=== PATIENT | female | born 1960 | race Caucasian/White ===

== ENCOUNTER → 2019-06-08 15:41 | Outpatient (CLI) | payer SELFPAY ==
--- NOTE | ~2019-06-08 | CT_ITS ---
EXAMINATION: CT abdomen pelvis wo con DATE: 06/08/2019 16:07 INDICATION: Low back pain, hematuria TECHNIQUE: Computed tomography (CT) of the abdomen and pelvis was performed without intravenous contr ast. The dose-length product (DLP) was 492.79 mGy-cm. Automated exposure control and iterative recons truction technique were employed. COMPARISON: CT, 06/10/2008 FINDINGS: Minimal dependent atelectasis is present in the lung bases. The heart size is normal. There is a stable 4 mm cyst of the right hepatic lobe. The spleen, pancreas, gallbladder, and adrenal glan ds are normal. The kidneys are unremarkable. No stones are identified in the kidneys, ureters, or patti dder. There is no hydronephrosis or hydroureter. No pathologically enlarged abdominal or pelvic lymph nodes are identified. There is no free intraperitoneal gas or evidence of bowel obstruction. There i s calcified fibroid of the uterine fundus. IMPRESSION: 1. No CT correlate for the patient's symptoms. Reviewed, dictated and finalized at location A. 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
== END ==
PROVIDERS: PCP Family Medicine; Visit Provider Family Medicine
DX: R82.90 Unspecified abnormal findings in urine (principal)
CPT/HCPCS: 74176

== ENCOUNTER 2019-08-31 08:22 | Outpatient (CLI) | payer OTHER, SELFPAY ==
--- NOTE | ~2019-08-31 | US_ITS ---
EXAMINATION: US right upper quadrant DATE: 08/31/2019 09:12 INDICATION: Other cholelithiasis without obstruction. TECHNIQUE: Multiple grayscale and Doppler ultrasound images of the abdomen were obtained. COMPARISON: CT abdomen and pelvis 06/08/2019 FINDINGS: The visualized portions of the head, body, and tail of the pancreas are normal. The liver i s normal. There is normal flow in main portal vein. The gallbladder is normal in size. No gallstones or gallbladder wall thickening. There was no sonographic Otto sign. The common duct is normal and m easures 3 mm. IMPRESSION: 1. Normal right upper quadrant ultrasound. Reviewed, dictated and finalized at location A.
== END 2019-08-31 08:23 | disposition home or self-care (01) ==
PROVIDERS: PCP Family Medicine; Visit Provider Family Medicine
DX: K80.80 Other cholelithiasis without obstruction (principal)
CPT/HCPCS: 76705

== ENCOUNTER 2019-12-22 12:00 | Outpatient (CLI) | payer OTHER, SELFPAY ==
--- NOTE | ~2019-12-22 | MM_ITS ---
EXAMINATION: MM screening [facility] BI w huber HISTORY: Screening TECHNIQUE: Craniocaudal and mediolateral oblique 3-D tomosynthesis images were obtained and synthetic 2-D images were generated. CAD analysis was submitted and interpreted. COMPARISON: Comparison to multiple prior studies sequentially, with oldest reviewed study dated 01/19. BREAST PARENCHYMAL COMPOSITION: There are scattered areas of fibroglandular density. FINDINGS: There is no evidence of suspicious mass, calcification, or architectural distortion to sugg est malignancy in either breast. There has been no suspicious interval change. IMPRESSION: 1. No mammographic evidence of malignancy. 2. Recommend routine screening mammography in one year. BI-RADS Category 1: Negative Reviewed, dictated and finalized at location A.
== END 2019-12-22 12:01 | disposition home or self-care (01) ==
LOC: ANHIMG 12:04
PROVIDERS: PCP Family Medicine; Visit Provider Family Medicine
DX: Z12.31 Encounter for screening mammogram for malignant neoplasm of breast (principal)
CPT/HCPCS: 77063; 77067

== ENCOUNTER 2020-06-19 13:13 | Outpatient (CLI) | payer OTHER, SELFPAY ==
--- NOTE | ~2020-06-19 | US_ITS ---
EXAMINATION: US thyroid EXAM DATE: 06/19/2020 13:39 INDICATION: Nontoxic goiter. Graves' disease. TECHNIQUE: Multiple grayscale and Doppler images of the thyroid were obtained (by a technologist who performed the scan) and subsequently reviewed. Individual nodules and recommendations may be reporte d in accordance with TI-RADS system as designated by the 2017 ACR White Paper TI-RADS committee. Comp sheree is made to prior examination from 02/02/2019. FINDINGS: The right thyroid lobe measures 9.0 x 2.8 x 3.3 cm, the left measuring 6.1 x 3.0 x 2.3 cm. These winifred urements are severely enlarged. There is diffuse heterogeneous echogenicity and also diffuse hypervas cularity. The isthmus is thickened at 9 mm. No focal nodules identified. IMPRESSION: 1. Hypervascular goiter. 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 Hypervascular goiter.
== END 2020-06-19 13:14 | disposition home or self-care (01) ==
PROVIDERS: PCP Family Medicine; Visit Provider Internal Medicine Endocrinology, Diabetes & Metabolism
DX: E04.9 Nontoxic goiter, unspecified (principal)
CPT/HCPCS: 76536

== ENCOUNTER 2020-08-27 08:34 | Outpatient (CLI) | payer OTHER, SELFPAY ==
--- NOTE | ~2020-08-27 | US_ITS ---
US abdomen limited INDICATION: Right upper quadrant pain PROCEDURE: Realtime right upper abdominal ultrasound. COMPARISON: No prior studies for comparison. FINDINGS: The pancreas is normal without focal mass or pancreatic ductal dilation. Liver echotexture is normal without focal mass or intrahepatic biliary dilatation. There is normal directional flow i n the portal vein. The gallbladder is normal without stones, gallbladder wall thickening or pericholecystic fluid. Comm on bile duct measures 4 mm. No sonographic Otto's sign. IMPRESSION: 1: Normal limited abdominal ultrasound. Reviewed, dictated and finalized at location A.
--- NOTE | ~2020-08-27 | MR_ITS ---
EXAMINATION: MR lumbar spine wo con DATE: 08/27/2020 09:35 INDICATION: Lumbar spinal stenosis. TECHNIQUE: Magnetic resonance imaging (MRI) of the lumbar spine was performed without intravenous con trast. Sequences included sagittal T2-weighted FSE, sagittal T2-weighted FS FSE, sagittal T1-weighted FSE, and axial T2-weighted FSE. COMPARISON: Lumbar spine radiographs 02/02/2019 FINDINGS: There is 4 degrees levocurvature of lumbar spine. Vertebral body heights are normal. There is moderately decreased disc height at L4-L5. The distal spinal cord signal intensity is normal. The conus medullaris is at T12. The following disc levels are specifically discussed: L1-L2: The disc is mildly bulging. There is moderate right and mild left facet joint osteoarthritis. There is mild bilateral neural foraminal stenosis. There is no central canal stenosis. L2-L3: The disc is bulging and has an annular fissure. There is severe bilateral facet joint osteoart hritis. There is mild bilateral neural foraminal stenosis. There is mild central canal stenosis. L3-L4: The disc is bulging and has an annular fissure. There is severe bilateral facet joint osteoart hritis. There is mild left neural foraminal stenosis. There is no central canal stenosis. L4-L5: The disc is bulging and has an annular fissure. There is moderate bilateral facet joint osteoa rthritis. There is mild bilateral neural foraminal stenosis. There is no central canal stenosis. L5-S1: The disc does not extend beyond the endplate margin. There is moderate bilateral facet joint o steoarthritis. There is mild bilateral neural foraminal stenosis. There is no central canal stenosis. IMPRESSION: 1. Mild lumbar spondylosis. Reviewed, dictated and finalized at location A. IMPRESSION: 1. Mild lumbar spondylosis.
== END 2020-08-27 08:35 | disposition home or self-care (01) ==
LOC: ANHIMG 08:40
PROVIDERS: PCP Family Medicine; Visit Provider Nurse Practitioner
DX: M48.061 Spinal stenosis, lumbar region without neurogenic claudication (principal); M47.816 Spondylosis without myelopathy or radiculopathy, lumbar region
CPT/HCPCS: 72148; 76705

== ENCOUNTER 2021-02-20 13:49 | Outpatient (CLI) | payer OTHER, SELFPAY ==
--- NOTE | ~2021-02-20 | US_ITS ---
EXAMINATION: US thyroid EXAM DATE: 02/20/2021 14:12 INDICATION: Nontoxic goiter. TECHNIQUE: Multiple grayscale and Doppler images of the thyroid were obtained (by a technologist who performed the scan) and subsequently reviewed. Individual nodules and recommendations may be reporte d in accordance with TI-RADS system as designated by the 2017 ACR White Paper TI-RADS committee. The re is no prior study for comparison. FINDINGS: The right thyroid lobe measures 7.3 x 4.0 x 2.7 centimeters, the left measuring 6.4 x 2.8 x 2.8 cm. T here is diffusely heterogeneous thyroid echogenicity with mildly hypervascular parenchyma. Dimensions are moderately enlarged. No definite focal nodule identified within this. There is no significant in terval change. IMPRESSION: 1. Moderate thyromegaly. Reviewed, dictated and finalized at location A. IMPRESSION: 1. Moderate thyromegaly.
== END 2021-02-20 13:50 | disposition home or self-care (01) ==
PROVIDERS: PCP Family Medicine
DX: E04.9 Nontoxic goiter, unspecified (principal)
CPT/HCPCS: 76536

== ENCOUNTER 2021-05-22 14:59 | Outpatient (CLI) | payer OTHER, SELFPAY ==
--- NOTE | ~2021-05-22 | MM_ITS ---
EXAMINATION: MM screening [facility] BI w huber HISTORY: Screening TECHNIQUE: Craniocaudal and mediolateral oblique 3-D tomosynthesis images were obtained and synthetic 2-D images were generated. CAD analysis was submitted and interpreted. COMPARISON: Comparison to multiple prior studies sequentially, with oldest reviewed study dated 10/18. BREAST PARENCHYMAL COMPOSITION: Breast composed of scattered areas of fibroglandular density FINDINGS: There is no evidence of suspicious mass, calcification, or architectural distortion to sugg est malignancy in either breast. There has been no suspicious interval change. IMPRESSION: 1. No mammographic evidence of malignancy. 2. Recommend routine screening mammography in one year. 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
== END 2021-05-22 15:00 | disposition home or self-care (01) ==
LOC: ANHIMG 15:02
PROVIDERS: PCP Family Medicine; Visit Provider Internal Medicine Endocrinology, Diabetes & Metabolism
DX: Z12.31 Encounter for screening mammogram for malignant neoplasm of breast (principal)
CPT/HCPCS: 77063; 77067

== ENCOUNTER 2021-08-27 13:58 | Outpatient (CLI) | payer OTHER, SELFPAY ==
--- NOTE | ~2021-08-27 | DEXA_ITS ---
Bone Density Report Name: KRIS SEWELL Age: 60 Sex: Female Ethnicity: White Date of : 1960 Indication: postmenopausal; screening for osteoporosis; Referring Provider: JOAQUÍN, JERICHO Fine Study: Bone densitometry was performed. Exam Date: August 27, 2021 Accession number: [id number] Bone Density: Region BMD T-score Z-score Classification AP Spine(L1-L4) 0.900 -1.3 0.1 Osteopenia Femoral Neck (Left) 0.727 -1.1 0.2 Osteopenia Total Hip (Left) 0.852 -0.7 0.2 Normal Femoral Neck (Right) 0.764 -0.8 0.5 Normal Total Hip (Right) 0.889 -0.4 0.5 Normal Total Hip Mean 0.871 -0.6 0.4 Normal World Health Organization criteria for BMD impression classify patients as: Normal (T-score at or above -1.0), Osteopenia (T-score between -1.0 and -2.5), or Osteoporosis (T-score at or below -2.5). 10-year Fracture Risk(1): Major Osteoporotic Fracture 7.3% Hip Fracture 0.4% Reported Risk Factors: [place] (), Neck BMD=0.727, BMI=26.2 (1) FRAX(R) Version 3.08. Fracture probability calculated for an untreated patient. Fracture probability may be lower if the patient has received treatment. Clinical Information Provided by Patient: Has used the following medications: Vitamin D Has the following medical conditions: fidencio espinal Patient maximum height was 63 Menopause Age: 51 Onset of menses at age 15 Number of children 2 Impression: The patient has low bone mass, based on the Total Spine T-score. The patient has an estimated ten-year risk of hip fracture of 0.4% and an estimated ten-year risk of major fracture of 7.3%, based on the WHO FRAX algorithm. Discussion: BONE DENSITY IS LOW AT ONE OR MORE SKELETAL SITES. This patient's lowest T-score is low at one or more skeletal sites. It meets the World Health Organization's (WHO) criteria for ?low bone mass? (T-score between -1.0 and -2.5). The patient's 10-year risk of fracture as calculated by FRAX is less than the threshold where pharmacological therapy is recommended by the National Osteoporosis Foundation (NOF). However, all treatment decisions require clinical judgment and consideration of individual patient factors, including patient preferences, comorbidities, previous drug use, risk factors not captured in the FRAX model (e.g., frailty, falls, vitamin D deficiency, increased bone turnover, interval significant decline in bone density) and possible under or overestimation of fracture risk by FRAX. The patient should follow a healthful lifestyle (good nutrition with adequate calcium and vitamin D, and appropriate weight-bearing exercise). Follow-Up: Consider repeating this study in 2 to 3 years to reassess this patient's status, or sooner if there is some new clinical indication. Reported by: ZARIA on 08/27/2021 2:18:00 PM.
== END 2021-08-27 13:59 | disposition home or self-care (01) ==
LOC: ANHIMG 13:58
PROVIDERS: PCP Family Medicine; Visit Provider Internal Medicine Endocrinology, Diabetes & Metabolism
DX: N95.9 Unspecified menopausal and perimenopausal disorder (principal); M85.89 Other specified disorders of bone density and structure, multiple sites
CPT/HCPCS: 77080

== ENCOUNTER 2022-08-07 08:11 | Outpatient (CLI) | payer OTHER, SELFPAY ==
--- NOTE | ~2022-08-07 | MM_ITS ---
EXAMINATION: MM screening [facility] BI w huber HISTORY: Screening mammogram TECHNIQUE: Craniocaudal and mediolateral oblique 3-D tomosynthesis images were obtained and synthetic 2-D images were generated. CAD analysis was submitted and interpreted. COMPARISON: 05/22/2021, 12/22/2019, 10/13/2018 BREAST PARENCHYMAL COMPOSITION: There are scattered areas of fibroglandular density. FINDINGS: No suspicious mass, calcification, or architectural distortion are identified in either prashant ast to suggest malignancy. There has been no suspicious interval change. IMPRESSION: 1. No mammographic evidence of malignancy. 2. Recommend routine screening mammography in one year. BI-RADS Category 1: Negative Reviewed, dictated and finalized at location A.
== END 2022-08-07 08:12 | disposition home or self-care (01) ==
PROVIDERS: PCP Family Medicine; Visit Provider Family Medicine
DX: Z12.31 Encounter for screening mammogram for malignant neoplasm of breast (principal)
CPT/HCPCS: 77063; 77067

== ENCOUNTER 2023-03-31 08:00 | Outpatient (RCR) | payer OTHER, SELFPAY ==
[2023-02-10 08:00] VITALS: BP_SYST 150
--- NOTE | 2023-02-10 09:00 | OPREHPOC ---
Outpatient Therapy Plan of Care This is a Multidisciplinary Plan of Care that may contain components documented by all disciplines (PT, OT, and ST.) PT Problem 1 PT Problem #1 Knowledge Deficit PT Goal 1 Goal 1* indep with HEP 2* correct shoulder position with exercises PT Problem 2 PT Problem #2 Pain PT Goal 1 Goal 1* decrease pain rating at worst rating of 3/10 2* pt report with sleeping, awaken 2x/night due to shoulder pain 3* self assessment Quick DASH score of 20% limitation in activity PT Problem 3 PT Problem #3 Impaired Range of Motion PT Goal 1 Goal increase R standing active ROM of shoulder to improve home, self care and work task ability: 1* flexion to 150' 2* abduction to 145' 3* IR- reach behind back, finger tips to lower edge scapula PT Problem 4 PT Problem #4 Impaired Strength PT Goal 1 Goal increase strength of R shoulder-scapula to improve position of GH joint and use of R arm for tasks: in standing pt perform 5 reps through full ROM 1* flexion with 4# hand weight 2* abduction with 3# hand weight 3* scapular retraction with 4# hand weight and shoulder abduction ~ 60'
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
--- NOTE | 2023-02-19 11:57 | PCPTNOTE ---
pt called and canceled today's appt.
--- NOTE | 2023-03-10 09:05 | OPREHPOC ---
Outpatient Therapy Plan of Care This is a Multidisciplinary Plan of Care that may contain components documented by all disciplines (PT, OT, and ST.) PT Problem 1 PT Problem #1 Knowledge Deficit PT Goal 1 Goal 1* indep with HEP 2* correct shoulder position with exercises Progress Met Comment 03-10-23 progress met goals continue towards goals to progress education/HEP PT Problem 2 PT Problem #2 Pain PT Goal 1 Goal 1* decrease pain rating at worst rating of 3/10 2* pt report with sleeping, awaken 2x/night due to shoulder pain 3* self assessment Quick DASH score of 20% limitation in activity Progress Not Met Comment 03-10-23 progress goals not met;improved with all #1 to 5/10; #2 3x/ night; #3 32%; continue towards goals PT Problem 3 PT Problem #3 Impaired Range of Motion PT Goal 1 Goal increase R standing active ROM of shoulder to improve home, self care and work task ability: 1* flexion to 150' 2* abduction to 145' 3* IR- reach behind back, finger tips to lower edge scapula Progress Not Met Comment 03-10-23 progress goals not met, but improved: #1 to 140'; #2 to 135' and #3 thumb to lower scapula continue towards goals PT Problem 4 PT Problem #4 Impaired Strength PT Goal 1 Goal increase strength of R shoulder-scapula to improve position of GH joint and use of R arm for tasks: in standing pt perform 5 reps through full ROM 1* flexion with 4# hand weight 2* abduction with 3# hand weight 3* scapular retraction with 4# hand weight and shoulder abduction ~ 60' Progress Partially Met Comment 03-10-23 progress goals not met, but improv
--- NOTE | 2023-03-10 09:05 | PTOPPROG ---
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 Compared to the initial evaluation: pain decreased from 5-8/10 to 2-5/10; reported sleeping tolerance awaken from 8 to 3 times/night due to shoulder pain; self assessment Quick DASH from 41 to 32% limitation in activity level; Active shoulder ROM in standing all increased: flexion 140', abduction 135', IR- reach behind back, thumb to lower scapula edge; ER- reach palm to back of head; all end motions increase pain, IR and abduction most painful. Strength R shoulder-use of hand weight for strengthening: flexion with 3#, abduction with 2# hand weights x 5 reps. The goals were partially achieved. Continue PT treatment. Plan of Care Interventions Electrical Stimulation,Hot Pack/Cold Pack,Manual Therapy,Patient Education,Therapeutic Activities,Therapeutic Exercise,Ultrasound,Other Other Interventions taping, IASTM PT Services Indicated Yes Treatment Frequency and 2x/wk for 3 weeks Duration These treatments will address the objective and functional deficits as defined above. The patient will be advanced safely and appropriately in order for the patient to progress towards his/her prior level of function. Additional exercises will be introduced and as well as a comprehensive home exercise program upon discharge, if needed, ?to ensure carryover of functional gains achieved in the clinic. This treatment plan has been reviewed and agreement upon by the patient.
--- NOTE | 2023-04-02 12:32 | PCPTNOTE ---
pt called and canceled reeval; stated she would call later to reschedule.
--- NOTE | 2023-04-29 10:50 | PTOPDC ---
Assessment and note entered by Елена Banerjee, PT Discharge Information Assessment PT Clinical Summary PHYSICAL THERAPY DISCHARGE Lakisha has received a total of 12 PT sessions, from Feb 10 to Mar 31 for R shoulder pain. She called and canceled the reevaluation appt for 04-02-23. And has not returned for therapy. Discharge PT services. The goals were not addressed. Plan of Care PT Services Indicated No
== END 2023-04-29 11:19 | disposition home or self-care (01) ==
LOC: ANHPT 08:00
PROVIDERS: PCP Family Medicine; Visit Provider Nurse Practitioner Adult Health
DX: M25.511 Pain in right shoulder (principal); M54.50 Low back pain, unspecified; E78.5 Hyperlipidemia, unspecified; E06.3 Autoimmune thyroiditis
CPT/HCPCS: 97035; 97110; 97112; 97140; 97161; 97530

== ENCOUNTER 2023-11-04 09:47 | Outpatient (CLI) | payer BC, SELFPAY ==
--- NOTE | ~2023-11-04 | MM_ITS ---
EXAMINATION: MM screening [facility] BI w huber HISTORY: Screening TECHNIQUE: Craniocaudal and mediolateral oblique 3-D tomosynthesis images were obtained and synthetic 2-D images were generated. CAD analysis was submitted and interpreted. COMPARISON: Comparison to multiple prior studies sequentially, with oldest reviewed study dated 09/2016. BREAST PARENCHYMAL COMPOSITION: Not dense: There are scattered areas of fibroglandular density. FINDINGS: There is no evidence of suspicious mass, calcification, or architectural distortion to sugg est malignancy in either breast. There has been no suspicious interval change. IMPRESSION: 1. No mammographic evidence of malignancy. 2. Recommend routine screening mammography in one year. BI-RADS Category 1: Negative Reviewed, dictated and finalized at location B.
== END 2023-11-04 09:48 | disposition home or self-care (01) ==
PROVIDERS: PCP Family Medicine; Visit Provider Family Medicine
DX: Z12.31 Encounter for screening mammogram for malignant neoplasm of breast (principal)
CPT/HCPCS: 77063; 77067

== ENCOUNTER 2023-11-24 08:09 | Emergency (ER) | payer BC, SELFPAY ==
--- NOTE | ~2023-11-24 | CT_ITS ---
EXAMINATION: CT abdomen pelvis w con DATE: 11/24/2023 09:16 INDICATION: Right upper quadrant abdominal pain. Epigastric abdominal pain. TECHNIQUE: Computed tomography (CT) of the abdomen and pelvis was performed with 100 mL Omnipaque 350 intravenous contrast. Automated exposure control and iterative reconstruction technique were employe d. The dose-length product was 381.86 mGy-cm. COMPARISON: CT abdomen and pelvis 06/08/2019 FINDINGS: The visualized portions of the lung bases demonstrate mild atelectasis. There is mild scarr ing in paraspinal right lower lobe. No pleural effusion. The heart size is normal. No pericardial eff usion. The liver, gallbladder, spleen, pancreas, adrenal glands, and kidneys are normal. There are no dilated loops of bowel. The appendix is normal. Aortic atherosclerosis is noted. There are no pathol ogically enlarged lymph nodes. There is no free intraperitoneal fluid. There is moderate spondylosis at L4-L5 and mild spondylosis at other levels. IMPRESSION: 1. No etiology for the patient's symptoms. Reviewed, dictated and finalized at location A.
[2023-11-24 08:12] VITALS: BP 122/76; PULSE 90; RESP 15; TEMP 37.1; O2SAT 100
[2023-11-24 08:26] LABS: Basophils Percent Auto 0.6 % (0.2-1.2); Eosinophils Absolute Auto 0.1 K/mm3 (0-0.3); Eosinophils Percent Auto 1.7 % (0-4.4); Hematocrit 44.8 % (37.0-47.0); Hemoglobin 14.8 g/dL (12.0-15.0); Immature Granulocyte Absolute 0.02 K/mm3 (0.00-0.031); Immature Granulocyte Percent A 0.3 % (0-0.5); Lymphocytes Absolute Auto 3.19 K/mm3 (0.9-3.2); Lymphocytes Percent Auto 49.1 % (18.3-44.2); Mean Corpuscular Hemoglobin 29.2 pg (26-34); Mean Corpuscular Volume 88.4 fl (80-100); Mean Platelet Volume 9.4 fl (7.4-10.4); Monocytes Absolute Auto 0.5 K/mm3 (0.1-0.6); Monocytes Percent Auto 7.5 % (2.6-8.5); Neutrophils Absolute Auto 2.7 K/mm3 (1.3-6.7); Neutrophils Percent Auto 40.8 % (45.5-73.1); Platelet Count Result 318 k/mm3 (150-375); Red Blood Count 5.07 M/mm3 (4.2-5.4); Red Cell Distribution Width 12.6 % (11.5-14.5); White Blood Count 6.5 K/mm3 (4.5-10.0)
[2023-11-24 08:35] LABS: Alanine Aminotransferase 15 U/L (6-35); Albumin Level 4.9 g/dL (3.5-5.1); Alkaline Phosphatase 85 U/L (38-126); Anion Gap 14 mmol/L (4-12); Aspartate Amino Transferase 24 U/L (14-36); Blood Urea Nitrogen 16 mg/dL (7-17); Calcium 9.2 mg/dL (8.4-10.2); Carbon Dioxide 24 mmol/L (22-30); Chloride 101 mmol/L (98-107); Estimated CRCL calculation 62 ml/min; Estimated Glomerular Filt Rate > 60; Glucose 105 mg/dL (65-110); Lipase 69 U/L (23-300); Potassium 3.8 mmol/L (3.4-5.0); Sodium 139 mmol/L (137-145)
--- NOTE | 2023-11-24 08:45 | ED.ABDPAIN ---
HPI - Abdominal Pain General Chief Complaint: Abdominal Pain Stated Complaint: abdominal pain Time Seen by Provider: 11/24/23 08:24 History of Present Illness HPI narrative: 63-year-old female presenting to the emergency department for evaluation of intermittent epigastric and right upper quadrant pain. Patient states symptoms started about 2 weeks ago, patient had follow-up with her primary care physician in patient states no changes were made. Patient has no prior history of gallbladder disease or gastritis. Patient states he did have heartburn during but denies any current heartburn issues. Patient denies any personal cardiac history. Patient states the pain is unaffected by food but patient woke up this morning and did have worsening nausea. Patient states the pain started epigastric does radiate to her back. Does have some tenderness to palpation. Related Data Home Medications Medication Instructions Recorded Confirmed cholecalciferol (vitamin D3) 25 25 mcg PO DAILY 02/03/23 09/09/23 mcg (1,000 unit) capsule Allergies Allergy/AdvReac Type Severity Reaction Status Date / Time No Known Allergies Allergy Verified 11/24/23 08:16 Review of Systems Review of Systems: All systems reviewed & are unremarkable except as noted in HPI and below PMFSH Past Medical History Medical History (Updated 11/24/23 @ 10:49 by Qasim Javed MD) Borderline high cholesterol Graves disease Family History Family History Father Skin cancer Heart disease Mother Thyroid cancer Sibling Skin cancer Social History Social History (Updated 02/03/23 @ 13:19 by Stephanie Geronimo CMA) Smoking status: Former smoker Alcohol intake: current Alcohol use details: occ Substance use: current Substance use type: marijuana Lack of Transportation: No Lack of Food: Never True Current Housing: I Have Housing Concerned About Future Housing: No Difficulty Paying Gas/Electric Bills: YES Difficulty Paying for Meds: No Currently Unemployed: No Education: High School Diploma/GED Difficulty w/ Childcare or Family Care: No Exam Narrative: APPEARANCE: Well appearing, no pain, no distress, well-nourished. HEAD: normocephalic, atraumatic. EYES: PERRLA/EOMI, conjunctivae clear. NOSE: Normal no drainage EARS:TMS clear with good light reflex. THROAT: Pharynx clear, no exudate. NECK: Supple. No adenopathy, no masses. RESPIRATORY: Airway patent, respirations nonlabored. Clear to auscultation bilaterally, no rales, rhonchi, wheezing. CARDIOVASCULAR: Regular rate and rhythm without murmurs rubs or gallops. ABDOMINAL: Right upper quadrant and epigastric tenderness to palpation MUSCULOSKELETAL: Moves all extremities. Strength/ROM intact, No edema, No calf tenderness. NEURO: Alert. Cranial nerves II through XII intact. Grossly intact SKIN: Warm, dry. Normal Color Course Course Emergency Course: Patient felt improved with treatment and was discharged to home with GI follow-up Vital Signs Vital signs: Vital Signs Temperature 98.8 F 11/24/23 08:12 Pulse Rate 90 11/24/23 08:12 Respiratory Rate 15 11/24/23 08:12 Blood Pressure 122/76 11/24/23 08:12 Pulse Oximetry 100 11/24/23 08:12 Oxygen Delivery Room Air 11/24/23 08:12 Temperature 98.8 F 11/24/23 08:12 Pulse Rate 69 11/24/23 08:55 Respiratory Rate 14 11/24/23 08:55 Blood Pressure 129/69 11/24/23 08:55 Pulse Oximetry 99 11/24/23 08:55 Oxygen Delivery Room Air 11/24/23 08:12 MDM - Abdominal Pain MDM Narrative Medical decision making narrative: 63-year-old female presented to the emergency department for evaluation for epigastric pain. Patient states symptoms were resolved with a GI cocktail. Patient is afebrile with no leukocytosis and a stable hemoglobin of 14.8. Patient has no acute abnormalities on her CMP lactic acid is not elevated
[2023-11-24] MEDS: BELLADONNA ALK/PHENOB ELIX 10 ML, MAG HYDROX/ALUMINUM HYD/SIMETH 30 ML, LIDOCAINE HCL 2... PO (08:54)
[2023-11-24 08:55] VITALS: BP 129/69; PULSE 69; RESP 14; O2SAT 99
[2023-11-24 09:26] LABS: Lactic Acid Reflex 1.1 mmol/L (0.7-2.0)
[2023-11-24 09:26] LABS: Add Urine Microscopic? YES; Appearance Urine Clear (Clear); Bacteria Urine None Seen /hpf; Bilirubin Urine Negative (Negative); Blood Urine Negative (Negative); Color Urine Yellow (Yellow); Glucose Urine UA Negative (Negative); Ketones Urine Negative (Negative); Leukocyte Esterase Ur Trace LEU/UL (Negative); Nitrate Urine Negative (Negative); Non Pathogenic Casts 0-2; Protein Urine Negative (Negative); RBC Urine 0-2 /hpf (0-2); Specific Grav Ur 1.007 (1.001-1.035); Squamous Epithelial Cell Urine None Seen /hpf (Few); Urobilinogen Urine 0.2 mg/dL (<2.0); WBC Urine 0-5 /hpf (0-3); pH Urine 5.5 (5.0-9.0)
== END 2023-11-24 11:08 | disposition home or self-care (01) ==
PROVIDERS: Emergency Provider Emergency Medicine; PCP Family Medicine
DX: R10.13 Epigastric pain (principal); E05.00 Thyrotoxicosis with diffuse goiter without thyrotoxic crisis or storm
CPT/HCPCS: 36415; 74177; 80053; 81001; 83605; 83690; 85025; 99284; A9270; Q9967

== ENCOUNTER 2024-01-05 16:39 | Outpatient (CLI) | payer BC, SELFPAY ==
--- NOTE | ~2024-01-05 | US_ITS ---
EXAMINATION: US thyroid DATE: 01/05/2024 17:15 INDICATION: Nontoxic goiter. TECHNIQUE: Multiple ultrasound images of the thyroid were obtained. COMPARISON: Thyroid ultrasound 02/20/2021 FINDINGS: The right thyroid lobe measures 8.0 x 2.9 x 3.7 cm. The left thyroid lobe measures 6.7 x 2.9 x 3.0 c m. The thyroid demonstrates diffusely heterogeneous echogenicity. Vascularity is increased. In the r ight thyroid lobe, there is an 8 mm mixed cystic and solid, isoechoic, wider than tall nodule with sm ooth margin without echogenic foci (TI-RADS TR2). IMPRESSION: 1. Heterogeneous, hypervascular thyroid, consistent with chronic lymphocytic (Tervor) thyroiditis. 2. Small thyroid nodule, likely not clinically significant. No follow-up is needed. Reviewed, dictated and finalized at location A. IMPRESSION: 1. Heterogeneous, hypervascular thyroid, consistent with chronic lymphocytic (H ashimoto) thyroiditis. 2. Small thyroid nodule, likely not clinically significant. No follow-up is nee ded.
== END 2024-01-05 16:40 | disposition home or self-care (01) ==
LOC: ANHIMG 16:40
PROVIDERS: PCP Family Medicine; Visit Provider Nurse Practitioner Family
DX: E05.00 Thyrotoxicosis with diffuse goiter without thyrotoxic crisis or storm (principal); E04.9 Nontoxic goiter, unspecified
CPT/HCPCS: 76536

== ENCOUNTER 2024-03-15 15:00 | Outpatient (CLI) | payer BC, SELFPAY ==
--- NOTE | ~2024-03-15 | DEXA_ITS ---
Bone Density Report Name: KRIS SEWELL Age: 63 Sex: Female Ethnicity: White Date of : 1960 Indication: osteopenia; Referring Provider: JOAQUÍN, JERICHO [place] Study: Bone densitometry was performed. Exam Date: March 15, 2024 Accession number: [id number] Bone Density: Region BMD T-score Z-score Classification AP Spine(L1-L4) 0.905 -1.3 0.3 Osteopenia Femoral Neck (Left) 0.703 -1.3 0.1 Osteopenia Total Hip (Left) 0.822 -1.0 0.1 Normal Femoral Neck (Right) 0.752 -0.9 0.5 Normal Total Hip (Right) 0.875 -0.5 0.5 Normal Total Hip Mean 0.849 -0.8 0.3 Normal World Health Organization criteria for BMD impression classify patients as: Normal (T-score at or above -1.0), Osteopenia (T-score between -1.0 and -2.5), or Osteoporosis (T-score at or below -2.5). 10-year Fracture Risk(1): Major Osteoporotic Fracture 8.1% Hip Fracture 0.7% Reported Risk Factors: [place] (), Neck BMD=0.703, BMI=24.6 (1) FRAX(R) Version 3.08. Fracture probability calculated for an untreated patient. Fracture probability may be lower if the patient has received treatment. Previous Exams: Region Exam Age BMD T-score BMD Change BMD Change Date g/cm2 vs Baseline vs Previous AP Spine (L1-L4) 03/15/2024 63 0.905 -1.3 0.005 (0.6%) 0.005 (0.6%) 08/27/2021 60 0.900 -1.3 Total Hip(Left) 03/15/2024 63 0.822 -1.0 -0.030 (-3.5%) -0.030 (-3.5%) 08/27/2021 60 0.852 -0.7 Total Hip(Right) 03/15/2024 63 0.875 -0.5 -0.014 (-1.5%) -0.014 (-1.5%) 08/27/2021 60 0.889 -0.4 *Denotes significance at 95% confidence level, LSC for AP Spine = 0.022 g/cm2, LSC for Total Hip = 0.027 g/cm2 Clinical Information Provided by Patient: Has used the following medications: Vitamin D, Calcium Patient maximum height was 64.0 Menopause Age: 51 Drinks caffeinated beverages Onset of menses at age 16 Number of children 2 Impression: The patient has low bone mass, based on the Total Spine T-score. The patient has an estimated ten-year risk of hip fracture of 0.7% and an estimated ten-year risk of major fracture of 8.1%, based on the WHO FRAX algorithm. The BMD for the Total Hip(Left) decreased, changing by -3.5% since the last DXA exam. Discussion: BONE DENSITY IS LOW AT ONE OR MORE SKELETAL SITES. This patient's lowest T-score is low at one or more skeletal sites. It meets the World Health Organization's (WHO) criteria for ?low bone mass? (T-score between -1.0 and -2.5). The patient's 10-year risk of fracture as calculated by FRAX is less than the threshold where pharmacological therapy is recommended by the National Osteoporosis Foundation (NOF). However, all treatment decisions require clinical judgment and consideration of individual patient factors, including patient preferences, comorbidities, previous drug use, risk factors not captured in the FRAX model (e.g., frailty, falls, vitamin D deficiency, increased bone turnover, interval significant decline in bone density) and possible under or overestimation of fracture risk by FRAX. The patient should follow a healthful lifestyle (good nutrition with adequate calcium and vitamin D, and appropriate weight-bearing exercise). Follow-Up: Consider repeating this study in 2 years to reassess this patient's status, or sooner if there is some new clinical indication. Reported by: ZARIA on 03/15/2024 3:27:00 PM. Reviewed, dictated and finalized at location A. [facility]PITALBabatunde
== END 2024-03-15 15:01 | disposition home or self-care (01) ==
LOC: ANHIMG 15:02
PROVIDERS: PCP Family Medicine; Visit Provider Internal Medicine Endocrinology, Diabetes & Metabolism
DX: M85.89 Other specified disorders of bone density and structure, multiple sites (principal); Z78.0 Asymptomatic menopausal state
CPT/HCPCS: 77080

== ENCOUNTER 2024-03-30 00:22 | Day surgery (SDC) | payer BC, SELFPAY ==
[2024-03-30] MEDS: LACTATED RINGERS 1,000 ML 150 ML IV CONT (10:00)
[2024-03-30 10:01] VITALS: BP 139/56; PULSE 107; RESP 16; TEMP 36.2; O2SAT 98; BMI 24.7
--- NOTE | 2024-03-30 10:04 | WPDANESEPPF ---
Anes - Initial Pre Proc Eval Procedure: Operation Date: 03/30/24 13:00 Proposed Procedures p Esophagogastroduodenoscopy & Colonoscopy - Sabino Moore MD Date/Time: 03/30/24 10:04 Surgeon: Sabino Moore MD Pre Op Diagnosis: abn weight loss, screening neoplasm colon Patient Data Age: 63 Gender: F Height: 1.6 m Weight: 63.3 kg Last Vital Signs Temp 36.2 C L 03/30/24 10:01 Pulse 107 H 03/30/24 10:01 Resp 16 03/30/24 10:01 BP 139/56 L 03/30/24 10:01 Pulse Ox 98 03/30/24 10:01 O2 Del Method Room Air 03/30/24 10:01 Allergies Allergy/AdvReac Type Severity Reaction Status Date / Time No Known Allergies Allergy Verified 03/30/24 09:52 Home Medications ?Medication ?Instructions ?Recorded ?Confirmed ?Type cholecalciferol (vitamin D3) 25 25 mcg PO DAILY 02/03/23 03/30/24 History mcg (1,000 unit) capsule methimazole 10 mg tablet 20 mg (2 x 10 mg) PO DAILY 90 days 09/09/23 03/30/24 Rx #180 tabs vitamin B complex (Vitamins B 1 cap PO DAILY 03/15/24 03/30/24 History Complex capsule) Patient hx anesthesia problems: none Family hx anesthesia problems: none Results Review: All pre-operative results and documents have been reviewed as part of the pre-operative evaluation. [facility] Past Medical History Medical History Borderline high cholesterol Graves disease Family History Family History Father Skin cancer Heart disease Mother Thyroid cancer Sibling Skin cancer Social History Social History Smoking status: Former smoker Tobacco type: cigarettes Alcohol intake: current Alcohol use details: occ Substance use: current Substance use type: marijuana Lack of Transportation: No Lack of Food: Never True Current Housing: I Have Housing Concerned About Future Housing: No Difficulty Paying Gas/Electric Bills: YES Difficulty Paying for Meds: No Currently Unemployed: No Education: High School Diploma/GED Difficulty w/ Childcare or Family Care: No Living arrangements: alone Spiritual care concerns: No Anes - Eval Final PreProcedure Day of Procedure 03/30/24 10:04 Patient weight: normal Heart: regular rate and rhythm Lungs: clear to auscultation Airway: Mallampati scale class II Neurological: alert and oriented Last oral intake: >/= 8 hours ASA classification: II Emergent: no Anesthetic plan: proceed Anesthesia type and monitoring: general GIVS and standard monitoring Results Review: All pre-operative results and documents have been reviewed as part of the pre-operative evaluation. Informed Consent: The patient's anesthetic plan and its attendant risks and benefits were discussed with the patient/family/POA. Questions were solicited and answers provided to the satisfaction of the patient/family/POA.
--- NOTE | 2024-03-30 10:07 | PM.HPGS ---
History of Present Illness History of Present Illness Consent: Risks, benefits, and alternatives have been discussed and questions answered. Patient agrees to proceed with procedure. Chief complaint: abn weight loss, screening neoplasm colon Narrative: Cindy Cerna is a 63 year old female with intermittent abdominal pain and weight loss, CT scan was negative. Last colonoscopy 10 years ago. Review of Systems Review of Systems: All systems reviewed & are unremarkable except as noted in HPI and below PMFSH Past Medical History Medical History Borderline high cholesterol Graves disease Family History Family History Father Skin cancer Heart disease Mother Thyroid cancer Sibling Skin cancer Social History Social History Smoking status: Former smoker Tobacco type: cigarettes Alcohol intake: current Alcohol use details: occ Substance use: current Substance use type: marijuana Lack of Transportation: No Lack of Food: Never True Current Housing: I Have Housing Concerned About Future Housing: No Difficulty Paying Gas/Electric Bills: YES Difficulty Paying for Meds: No Currently Unemployed: No Education: High School Diploma/GED Difficulty w/ Childcare or Family Care: No Living arrangements: alone Spiritual care concerns: No Meds Home Medications and Allergies Home Medications ?Medication ?Instructions ?Recorded ?Confirmed ?Type cholecalciferol (vitamin D3) 25 25 mcg PO DAILY 02/03/23 03/30/24 History mcg (1,000 unit) capsule methimazole 10 mg tablet 20 mg (2 x 10 mg) PO DAILY 90 days 09/09/23 03/30/24 Rx #180 tabs vitamin B complex (Vitamins B 1 cap PO DAILY 03/15/24 03/30/24 History Complex capsule) Allergies Allergy/AdvReac Type Severity Reaction Status Date / Time No Known Allergies Allergy Verified 03/30/24 09:52 Vital Signs Vital Signs - 24 hr 03/30/24 10:01 Temperature 97.2 F L Pulse Rate 107 H Respiratory Rate 16 Blood Pressure 139/56 L Pulse Oximetry 98 Oxygen Delivery Room Air Exam Const: General: comfortable and no acute distress HENMT: Face/Nose/Sinus: Normal nares present Eyes: General: appearance normal, both eyes and all related structures Neck: Neck: no JVD Resp: Auscultation: clear to auscultation bilaterally Cardio: Rate: regular rate Rhythm: regular rhythm GI: Inspection: non-distended GI Palp: Yes Soft to palpation Skin: General skin exam: normal color Neuro: General: gait normal Speech: normal speech Extrem: General: normal to inspection Psych: Mental Status: mental status grossly normal Assessment and Plan Assessment and plan (1) Screen for colon cancer: Code(s): Z12.11 - Encounter for screening for malignant neoplasm of colon Status: Acute Assessment and Plan: colonoscopy (2) Weight loss: Code(s): R63.4 - Abnormal weight loss Status: Acute (3) Epigastric pain: Code(s): R10.13 - Epigastric pain Status: Acute Assessment and Plan: egd
--- NOTE | 2024-03-30 10:19 | SUR.OPER ---
1015 end EGD- 1019 start Colon
[2024-03-30 10:27] VITALS: BP 110/65; PULSE 89; RESP 16; O2SAT 97
[2024-03-30 10:37] VITALS: BP 115/57; PULSE 76; RESP 16; O2SAT 100
[2024-03-30 10:43] VITALS: BP 114/66; PULSE 76; RESP 16; O2SAT 100
== END 2024-03-30 10:53 | disposition home or self-care (01) ==
PROVIDERS: PCP Family Medicine; Referring Provider Nurse Practitioner Family; Visit Provider Internal Medicine Gastroenterology
PROC: 0DJ08ZZ Inspection of Upper Intestinal Tract, Via Natural or Artificial Opening Endoscopic (ICD-10-PCS; CPT 43235; principal; 2024-03-30 13:00)
DX: Z12.11 Encounter for screening for malignant neoplasm of colon (principal); E05.00 Thyrotoxicosis with diffuse goiter without thyrotoxic crisis or storm; F12.90 Cannabis use, unspecified, uncomplicated; Z87.891 Personal history of nicotine dependence; Z84.0 Family history of diseases of the skin and subcutaneous tissue; Z80.8 Family history of malignant neoplasm of other organs or systems; Z82.49 Family history of ischemic heart disease and other diseases of the circulatory system
CPT/HCPCS: 43239; 45378; 88305; J2704; J7120

== ENCOUNTER 2024-04-10 08:08 | Emergency (ER) | payer OTHER, BC, SELFPAY ==
[2024-04-10 08:13] VITALS: BP 138/56; PULSE 94; RESP 16; TEMP 37; O2SAT 100
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
[2024-04-10] MEDS: SILVER SULFADIAZINE 1% CR 50 GM JAR (*BKC) 1 APPLIC TOPICAL (08:33)
== END 2024-04-10 08:45 | disposition home or self-care (01) ==
PROVIDERS: Emergency Provider Nurse Practitioner Family; PCP Family Medicine
DX: T25.222A Burn of second degree of left foot, initial encounter (principal); T31.0 Burns involving less than 10% of body surface; X12.XXXA Contact with other hot fluids, initial encounter; Z87.891 Personal history of nicotine dependence
CPT/HCPCS: 16020; 99213; A9270; G0463

== ENCOUNTER 2024-12-27 14:12 | Outpatient (CLI) | payer BC, SELFPAY ==
--- OUTSIDE RECORDS SUMMARY | 2024-02-24 05:00 | XMS_ITS ---
Author Organization [facility] Address [address] [place] [address] Care Team Providers Care Diving Board Assembler Name Role Phone Yari Bean Unavailable [phone] REASON FOR VISIT 7 week follow up Encounters Encounter Location Date Provider Diagnosis [facility] [address] [place] [address] 02/24/2024 Yari Bean Plan Of Treatment No Information Progress Notes * Cindy CERNADOB:[birth year] (64 yo F)Acc No.[id number]:02/24/2024 Progress Notes Patient: Cindy FERNANDEZ Provider: SIERRA Estrada :1960 A ge:63 Y S ex:Female Date:02/24/2024 Phone: Address:[address] [place], [place] [id number] Subjective: * Chief Complaints: * 1 . 7 week follow up. * Medical History: Objective: * Vitals: Assessment: Plan: * Treatment: * Billing Information: * Visit Code: * Procedure Codes: * Electronic signature of SIERRA Wilson on 12/27/2024 at 02:16 PM CDT Sign off status: Pending * Provider: SIERRA Estrada Date: 04/25/2023 Generated for Dasia gilmore/Antonio/eTdhruvitting on: 0 12/27/2024 02:16 PM CDT
--- OUTSIDE RECORDS SUMMARY | 2024-03-06 16:00 | XMS_ITS ---
Author Organization [facility] Address [address] [place] [address] [place] [id number] Care Team Providers Care Ethnology Teacher Name Role Phone Carolyn Cartagena Primary Care Provider [phone] Migration, Provider Unavailable Unavailable REASON FOR VISIT Multum To Medispan Conversion Encounter Medications Medication SIG (Take, Route, Frequency, Duration) Notes Start Date End Date Status ALPRAZolam 0.5 MG Tablet TAKE ONE TAB BY MOUTH 30MIN PRIOR TO FLIGHT FOR ANXIETY CONTROL.; Duration: 2 Days Activ e methIMAzole 5 MG Tablet 1 tab(s) orally once daily; Duration: 90 days 01/06/2024 Active methIMAzole 10 MG Tablet ; Duration: 30 Days Active Encounters Encounter Location Date Provider Diagnosis [address] [place] [id number] 03/06/2024 Provider Migration Plan Of Treatment Next Appt Details Provider Name:Carolyn Cartagena, 11:00:00 AM, [address] [place] [address], [phone], Progress Notes * Cindy CERNADOB:[birth year] (64 yo F)Acc No.[id number]:03/06/2024 Patient: Cindy Roman Provider: Marsha hubbard Migration :1960 A ge:63 Y S ex:Female Date:03/06/2024 Phone: Address:[address] [place], [place] [phone] Pcp:Carolyn Cartagena Subjective: * Chief Complaints: * M ultum To Medispan Conversion Encounter * Medications: T akingmethIMAzole 10 MG Tablet ALPRAZolam 0.5 MG Tablet TAKE ONE TAB BY MOUTH 30MIN PRIOR TO FLIGHT FOR ANXIETY CONTROL. methIMAzole 5 MG Tablet 1 tab(s) orally once daily Taking methIMAzole 10 MG Tablet Taking ALPRAZolam 0.5 MG Tablet TAKE ONE TAB BY MOUTH 30MIN PRIOR TO FLIGHT FOR ANXIETY CONTROL. Taking methIMAzole 5 MG Tablet 1 tab(s) orally once daily * Electronic signature of Prov ider Migration on 12/27/2024 at 02:17 PM CDT Sign off status: Pending * Provider: Marsha hubbard Migration Date: 1 05/06/2023 Generated for Dasia gilmore/Antonio/Julian on: 0 12/27/2024 02:17 PM CDT
--- OUTSIDE RECORDS SUMMARY | 2024-03-06 16:00 | XMS_ITS ---
Author Organization [facility] Address [address] [place] [address] Care Team Providers Care Merchandise Adjustment Clerk Name Role Phone Migration, Provider Unavailable Unavailable REASON FOR VISIT Multum To Medispan Conversion Encounter Medications Medication SIG (Take, Route, Fr equency, Duration) Notes Start Date End Date Status methIMAzole 10 MG for 30 Days Active methIMAzole 5 MG 1 tab(s) orally once daily for 90 days 01/06/2024 Active ALPRAZolam 0.5 MG TAKE ONE TAB BY MOUT H 30MIN PRIOR TO FLIGHT FOR ANXIETY CONTROL. for 2 Days Active Encounters Encounter Location Date Provider Diagnosis [facility] [address] [address] 03/06/2024 Provider Migration Plan Of Treatment No Information Progress Notes * Cindy CERNADOB:[birth year] (64 yo F)Acc No.[id number]:03/06/2024 Patient: Cindy FERNANDEZ Provider: Marsha hubbard Migration :1960 A ge:63 Y S ex:Female Date:03/06/2024 Phone: Address:[address] [place] [address], [facility] Subjective: * Chief Complaints: * 1 . Multum To Medispan Conversion Encounter. * Medical History: * Medications: T aking methIMAzole 10 MG Tablet , Taking ALPRAZolam 0.5 MG Tablet TAKE ONE TAB BY MOUTH 30MIN PRIOR TO FLIGHT FOR ANXIETY CONTROL. , Taking methIMAzole 5 MG Tablet 1 tab(s) orally once daily Objective: * Vitals: Assessment: Plan: * Treatment: * Billing Information: * Visit Code: * Procedure Codes: * Electronic signature of Prov ider Migration on 12/27/2024 at 02:17 PM CDT Sign off status: Pending * Provider: Marsha hubbard Migration Date: 1 05/06/2023 Generated for Dasia gilmore/Antonio/Julian on: 0 12/27/2024 02:17 PM CDT
--- OUTSIDE RECORDS SUMMARY | 2024-06-28 05:40 | XMS_ITS ---
Author Organization [employer] [facility] Address [address] [place] [address] Care Team Providers Care Vat Cleaner Name Role Phone Carolyn Cartagena [phone] REASON FOR VISIT lab fu Encounters Encounter Location Date Provider Diagnosis [facility] - Carolyn Cartagena [address] [place] [address] 06/28/2024 Carolyn Cartagena Plan Of Treatment No Information Progress Notes * Cindy CERNADOB:[birth year] (64 yo F)Acc No.[id number]:06/28/2024 Progress Notes Patient: Cindy FERNANDEZ Provider: Francisco Cartagena MD :1960 A ge:63 Y S ex:Female Date:06/28/2024 Phone: Address:[address] [place], [place] [phone] Subjective: * Chief Complaints: * 1 . Lab fu. * Medical History: Objective: * Vitals: Assessment: Plan: * Treatment: * Billing Information: * Visit Code: * Procedure Codes: * Electronic signature of Umer Cartagena MD on 12/27/2024 at 02:16 PM CDT Sign off status: Pending * Provider: Francisco Cartagena MD Date: 06/28/2024 Generated for Dasia gilmore/Antonio/Nonaitting on: 12/27/2024 02:16 PM CDT
--- NOTE | ~2024-12-27 | MM_ITS ---
EXAMINATION: MM screening george BI w [facility] HISTORY: Screening TECHNIQUE: Craniocaudal and mediolateral oblique 3-D tomosynthesis images were obtained and synthetic 2-D images were generated. CAD analysis was submitted and interpreted. COMPARISON: Comparison to multiple prior studies sequentially, with oldest reviewed study dated , 06/24/2017 BREAST PARENCHYMAL COMPOSITION: There are scattered areas of fibroglandular density. FINDINGS: There is no evidence of suspicious mass, calcification, or architectural distortion to suggest malignancy in either breast. IMPRESSION: 1. No mammographic evidence of malignancy. 2. Recommend routine screening mammography in one year. BI-RADS Category 1: Negative Reviewed, dictated and finalized at location B.
--- OUTSIDE RECORDS SUMMARY | 2024-12-27 14:17 | XMS_ITS | Clinical Summary ---
Author Organization [facility] Address [address] [place] [address] Care Team Providers Care Applications Support Specialist Name Role Phone Curry Fuentes MD Primary Care Provider [phone] Source Comments [facility],non-owned Affiliates and Associated Physician Practices is amultiple site organization consisting of ambulatory clinics and hospital sitesin [place], [place], [place] and [place]. This disclosure is being madepursuant to the Care Everywhere program and may not contain all information available regarding this patient. Last updated 18.[facility] Allergies No known active allergies Medications * Be aware that medications may not be up to date on this document. Alwaysverify current medications with the patient. atorvastatin (LIPITOR) 20 MG tablet atorvastatin 20 mg tablet TAKE 1 TABLET BY MOUTH EVERY DAY 06/29/19 21 Active methIMAzole (TAPAZOLE) 5 MG tablet methimazole 5 mg tablet TAKE 1 TABLET BY MOUTH THREE TIMES DAILY BEFORE BREAKFAST, LUNCH AND BEFORE DINNER 06/29/19 21 Active ALPRAZolam (XANAX) 0.5 MG tablet as needed 02/16/20 20 Active cyclobenzaprin e (FLEXERIL) 5 MG tablet cyclobenzaprine 5 mg tablet TAKE 1 TABLET BY MOUTH AT BEDTIME 06/29/19 21 Active Active Problems Problem Noted Date Diagnosed Date Hyperlipidemia 06/28/2020 Overview (10/16/2020): Last Assessment & Plan: Condition: stable Continue taking prescribed medications as directed. Do not stop taking any medications without speaking with PCP. Encouraged regular f/u with PCP for imaging/testing as directed. Discussed health risks, heart healthy diet and physical activity as allowed by PCP and tolerated. Follow up in: one month Hyperthyroidism 06/06/2014 Graves' disease 12/05/2010 Overview (10/16/2020): Last Assessment & Plan: Condition: stable Continue taking prescribed medications as directed. Do not stop taking any medications without speaking with PCP. 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 Follow up in: one month Social History Tobacco Use Types Packs/Day Years Used Date Smoking Tobacco: Former Smokeless Tobacco: Never Alcohol Use Standard Drinks/Week Comments Never 0 (1 standard drink = 0.6 oz pur e alcohol) Comments Unknown Sex and Gender Information Value Date Recorded Sex Assigned at Not on file Legal Sex Female 1:12 PM CDT Gender Identity Not on file Sexual Orientation Not on file Last Filed Vital Signs Vital Sign Reading Time Taken Comments Blood Pressure 111/71 10/16/2020 12:49 PM CDT Pulse 87 10/16/2020 12:49 PM CDT Temperature 36.2 C (97.1 F) 10/16/2020 12:49 PM CDT Respiratory Rate - - Oxygen Saturation 96% 10/16/2020 12:49 PM CDT Inhaled Oxygen Concentration - - Weight 71 kg (156 lb 9.6 oz) 10/16/2020 12:49 PM CDT Height 160 cm (5' 3) 10/16/2020 12:49 PM CDT Body Mass Index 27.74 10/16/2020 12:49 PM CDT Plan of Treatment Health Maintenance Due Date Last Done Comments COLOGUARD (AGES 45-75) - COL ON CA SCREENING 1961 COLON MONITORING 1961 COLONOSCOPY - COLON CA SCREENING 1961 CT COLONOGRAPHY - COLON CA SCREENING 1961 Colorectal Cancer Screening 1961 FIT - COLON CA SCREENING 1961 FLEX SIG - COLON CA SCREENING 1961 MAMMOGRAM 1961 HIV SCREENING 1976 HEPATITIS C SCREENING 09/11/1979 DTAP/TDAP/TD VACCINES (1 - Tdap) 1980 PAP SMEAR 1982 PNEUMOCOCCAL VACCINE 50+ (1 of 1 - PCV) 09/16/2011 ZOSTER VACCINE (1 of 2) 09/16/2011 SCREENING FOR DIABETES 10/16/2020 COVID-19 VACCINE (1 - 2023-2 5 season) 2023 DEPRESSION SCREENING 04/21/2024 INFLUENZA VACCINE (#1) 2024 Respiratory Syncytial Virus (RSV) Vaccine Pt: or over 60 yrs (1 - 1-dose 75+ series) 2036 HEPATITIS B VACCINE Aged Out No longe r eligible based on patient's age to complete this topic HIB VACCINE Aged Out No longer eligi ble based on patient's age to complete this topic HPV VACCINE Aged Out No longer eligi ble based on patient's age to complete this topic MENINGOCOCCAL (Group B) VACC INE SHARED DECISION-MAKING Aged Out No longer eligibl e based on patient's age to complete this topic MENINGOCOCCAL GROUPS A/C/Y/W VACCINE Aged Out No longer eligible b ased on patient's age to complete this topic Insurance [facility] Care Teams Applications Support Specialist Relationship Specialty Start Date End Date Curry Fuentes MD [address] [place] [address] PCP - General 09/25/20
--- OUTSIDE RECORDS SUMMARY | 2024-12-27 14:17 | XMS_ITS | Patient Health Record ---
Author Organization [facility] Address [address] [place] [id number] Care Team Providers Care Location Worker Name Role Phone Carolyn Cartagena Primary Care Provider Migration, Provider Unavailable Unavailable Yari Bean Unavailable [phone] Allergies No Known Allergies Results Component Value Reference Range Flag Notes COMPREHENSIVE METABOLIC PANE L Reviewed date:02/23/2024 07:23:54 PM Interpretation: Performing Lab:[place], [facility], [address], [place], [address] ElaineAile Redd MD Notes/Report: FASTING:YES Fasting reference interval FASTING: YES GLUCOSE 98 65-99 mg/dL N UREA NITROGEN (BUN) 17 7-25 mg/dL N CREATININE 0.40 0.50-1.05 mg/dL L EGFR 112 > OR = 60 mL/min/1.73m2 N BUN/CREATININE RATIO 43 6-22 (calc) H SODIUM 139 135-146 mmol/L N POTASSIUM 4.0 3.5-5.3 mmol/L N CHLORIDE 104 98-110 mmol/L N CARBON DIOXIDE 27 20-32 mmol/L N CALCIUM 9.8 8.6-10.4 mg/dL N PROTEIN, TOTAL 6.8 6.1-8.1 g/dL N ALBUMIN 4.1 3.6-5.1 g/dL N GLOBULIN 2.7 1.9-3.7 g/dL (calc) N ALBUMIN/GLOBULIN RATIO 1.5 1.0-2.5 (calc) N BILIRUBIN, TOTAL 0.5 0.2-1.2 mg/dL N ALKALINE PHOSPHATASE 73 37-153 U/L N AST 18 10-35 U/L N ALT 19 6-29 U/L N T3, FREE Reviewed date:02/26/2024 09:49:34 PM Interpretation: Performing Lab:[facility], [address] [place], [address] Aníbal Redd MD Notes/Report: FASTING:YES FASTING: YES T3, FREE 8.8 2.3-4.2 pg/mL H CBC (INCLUDES DIFF/PLT) Reviewed date:02/23/2024 07:23:33 PM Interpretation: Performing Lab:[facility], [place], [address] Aníbal Redd MD Notes/Report: For adults, a slight decrease in the calculated MCHC FASTING:YES value (in the range of 30 to 32 g/dL) is most likely not clinically significant; however, it should be FASTING: YES interpreted with caution in correlation with other red cell parameters and the patient's clinical condition. WHITE BLOOD CELL COUNT 5.7 3.8-10.8 Thousand/uL N RED BLOOD CELL COUNT 4.82 3.80-5.10 Million/uL N HEMOGLOBIN 13.6 11.7-15.5 g/dL N HEMATOCRIT 42.4 35.0-45.0 % N MCV 88.0 80.0-100.0 fL N MCH 28.2 27.0-33.0 pg N MCHC 32.1 32.0-36.0 g/dL N RDW 12.0 11.0-15.0 % N PLATELET COUNT 313 140-400 Thousand/uL N MPV 10.0 7.5-12.5 fL N ABSOLUTE NEUTROPHILS 1699 4176-6599 cells/uL N ABSOLUTE LYMPHOCYTES 3124 850-3900 cells/uL N ABSOLUTE MONOCYTES 690 200-950 cells/uL N ABSOLUTE EOSINOPHILS 160 15-500 cells/uL N ABSOLUTE BASOPHILS 29 0-200 cells/uL N NEUTROPHILS 29.8 N LYMPHOCYTES 54.8 N MONOCYTES 12.1 N EOSINOPHILS 2.8 N BASOPHILS 0.5 N VITAMIN B12/FOLATE, SERUM PA GWENDOLYN Reviewed date:02/23/2024 07:23:06 PM Interpretation: Performing Lab:[facility], [place], [address] Aníbal Redd MD Notes/Report: Reference Range FASTING:YES Low: <3.4 Borderline: 3.4-5.4 FASTING: YES Normal: >5.4 VITAMIN B12 047 283-0237 pg/mL N FOLATE, SERUM 6.9 N LIPID PANEL Reviewed date:02/23/2024 07:24:03 PM Interpretation: Performing Lab:[facility], [address] [place], [address] Aníbal Redd MD Notes/Report: Reference range: <100 For patients with diabetes plus 1 major ASCVD risk FASTING:YES factor, treating to a non-HDL-C goal of <100 mg/dL Desirable range <100 mg/dL for primary prevention; (LDL-C of <70 mg/dL) is considered a therapeutic FASTING: YES <70 mg/dL for patients with CHD or diabetic patients option. with > or = 2 CHD risk factors. LDL-C is now calculated using the Geovanna calculation, which is a validated novel method providing better accuracy than the Friedewald equation in the estimation of LDL-C. Manny SS et al. ADRIAN. 2013;310(19): 1056-1739 (http://education.Sernova/faq/EGK230) CHOLESTEROL, TOTAL 184 <200 mg/dL N HDL CHOLESTEROL 56 > OR = 50 mg/dL N TRIGLYCERIDES 122 <150 mg/dL N LDL-CHOLESTEROL 106 H CHOL/HDLC RATIO 3.3 <5.0 (calc) N NON HDL CHOLESTEROL 128 <130 mg/dL (calc) N T4, FREE Reviewed date:02/23/2024 07:23:21 PM Interpretation: Performing Lab:[facility], [address] [place], [address] Aníbal Redd MD Notes/Report: FASTING:YES FASTING: YES T4, FREE 2.2 0.8-1.8 ng/dL H TSH Reviewed date:02/23/2024 07:23:12 PM Interpretation: Performing Lab:[facility], [address] [place], [address] Aníbal Redd MD Notes/Report: FASTING:YES FASTING: YES TSH 0.01 0.40-4.50 mIU/L L T3 REVERSE, LC/MS/MS Reviewed date:02/23/2024 07:23:40 PM Interpretation: Performing Lab:[facility],, [address] [place], [address] Tali Flynn MD,PhD,HARLEY Notes/Report: FASTING:YES This test was developed and its analytical performance characteristics have been determined by [facility]. FASTING: YES It has not been cleared or approved by FDA. This assay has been validated pursuant to the CLIA regulations and is used for clinical purposes. T3 REVERSE, LC/MS/MS 31 8-25 ng/dL H COMPREHENSIVE METABOLIC PANE L Reviewed date:03/24/2024 09:46:27 PM Interpretation: Performing Lab:[facility], [address] [place], [address] Aníbal Redd MD Notes/Report: FASTING:YES Fasting reference interval FASTING: YES GLUCOSE 88 65-99 mg/dL N UREA NITROGEN (BUN) 13 7-25 mg/dL N CREATININE 0.42 0.50-1.05 mg/dL L EGFR 111 > OR = 60 mL/min/1.73m2 N BUN/CREATININE RATIO 31 6-22 (calc) H SODIUM 140 135-146 mmol/L N POTASSIUM 4.0 3.5-5.3 mmol/L N CHLORIDE 105 98-110 mmol/L N CARBON DIOXIDE 28 20-32 mmol/L N CALCIUM 9.6 8.6-10.4 mg/dL N PROTEIN, TOTAL 7.0 6.1-8.1 g/dL N ALBUMIN 4.3 3.6-5.1 g/dL N GLOBULIN 2.7 1.9-3.7 g/dL (calc) N ALBUMIN/GLOBULIN RATIO 1.6 1.0-2.5 (calc) N BILIRUBIN, TOTAL 0.9 0.2-1.2 mg/dL N ALKALINE PHOSPHATASE 75 37-153 U/L N AST 19 10-35 U/L N ALT 26 6-29 U/L N CYCLIC CITRULLINATED PEPTIDE (CCP) AB (IGG) Reviewed date:03/24/2024 09:45:25 PM Interpretation: Performing Lab:[facility], [address] [place], [address] Aníbal Redd MD Notes/Report: Reference Range FASTING:YES Negative: <20 Weak Positive: 20-39 FASTING: YES Moderate Positive: 40-59 Strong Positive: >59 CYCLIC CITRULLINATED PEPTIDE (CCP) AB (IGG) <16 N HAYLEE IFA SCREEN W/REFL TO TIT ER AND PATTERN, IFA Reviewed date:03/24/2024 09:45:34 PM Interpretation: Performing Lab:[facility], [address] [facility], [address] Aníbal Redd MD Notes/Report: HAYLEE IFA is a first line screen for detecting the FASTING:YES presence of up to approximately 150 autoantibodies in various autoimmune diseases. A negative HAYLEE IFA result FASTING: YES suggests an HAYLEE-associated autoimmune disease is not present at this time, but is not definitive. If there is high clinical suspicion for Sjogren's syndrome, testing for anti-SS-A/Ro antibody should be considered. Anti-Ana-1 antibody should be considered for clinically suspected inflammatory myopathies. AC-0: Negative International Consensus on HAYLEE Patterns (https://doi.org/10.1515/unpj-5106-1914) For additional information, please refer to http://education.Sernova/faq/FDP060 (This link is being provided for informational/ educational purposes only.) HAYLEE SCREEN, IFA NEGATIVE NEGATIVE N T3, FREE Reviewed date:03/24/2024 09:47:13 PM Interpretation: Performing Lab:[facility], [place], [address] Aníbal Redd MD Notes/Report: FASTING:YES FASTING: YES T3, FREE 6.0 2.3-4.2 pg/mL H RHEUMATOID FACTOR Reviewed date:03/24/2024 09:46:37 PM Interpretation: Performing Lab:[facility], [place], [address] Aníbal Redd MD Notes/Report: FASTING:YES FASTING: YES RHEUMATOID FACTOR <10 <14 IU/mL N C-REACTIVE PROTEIN Reviewed date:03/24/2024 09:46:44 PM Interpretation: Performing Lab:[facility], [facility], [address] [place], [address] Aníbal Redd MD Notes/Report: FASTING:YES FASTING: YES C-REACTIVE PROTEIN <3.0 <8.0 mg/L N CBC (INCLUDES DIFF/PLT) Reviewed date:03/24/2024 09:45:50 PM Interpretation: Performing Lab:[facility], [address] [place], [address] Aníbal Redd MD Notes/Report: For adults, a slight decrease in the calculated MCHC FASTING:YES value (in the range of 30 to 32 g/dL) is most likely not clinically significant; however, it should be FASTING: YES interpreted with caution in correlation with other red cell parameters and the patient's clinical condition. WHITE BLOOD CELL COUNT 6.2 3.8-10.8 Thousand/uL N RED BLOOD CELL COUNT 5.10 3.80-5.10 Million/uL N HEMOGLOBIN 14.2 11.7-15.5 g/dL N HEMATOCRIT 44.1 35.0-45.0 % N MCV 86.5 80.0-100.0 fL N MCH 27.8 27.0-33.0 pg N MCHC 32.2 32.0-36.0 g/dL N RDW 12.1 11.0-15.0 % N PLATELET COUNT 336 140-400 Thousand/uL N MPV 10.0 7.5-12.5 fL N ABSOLUTE NEUTROPHILS 1742 1421-5835 cells/uL N ABSOLUTE LYMPHOCYTES 3813 850-3900 cells/uL N ABSOLUTE MONOCYTES 471 200-950 cells/uL N ABSOLUTE EOSINOPHILS 130 15-500 cells/uL N ABSOLUTE BASOPHILS 43 0-200 cells/uL N NEUTROPHILS 28.1 N LYMPHOCYTES 61.5 N MONOCYTES 7.6 N EOSINOPHILS 2.1 N BASOPHILS 0.7 N SED RATE BY MODIFIED YESICA MADRID Reviewed date:03/24/2024 09:46:04 PM Interpretation: Performing Lab:[facility], [address] [place], [address] Aníbal Redd MD Notes/Report: FASTING:YES FASTING: YES SED RATE BY MODIFIED WESTERGREN 6 < OR = 30 mm/h N T4, FREE Reviewed date:03/30/2024 12:14:05 PM Interpretation: Performing Lab:[facility], [address] [place], [address] Aníbal Redd MD Notes/Report: FASTING:YES FASTING: YES T4, FREE 1.5 0.8-1.8 ng/dL N TSH Reviewed date:03/24/2024 09:46:53 PM Interpretation: Performing Lab:[facility], [facility], [address] [place], [address] Aníbal Redd MD Notes/Report: FASTING:YES FASTING: YES TSH 0.01 0.40-4.50 mIU/L L CBC + AutoDiff 5 Reviewed date:06/30/2024 11:07:00 AM Interpretation: Performing Lab: Notes/Report: WBC 5.65 3.77-11.03 10*3/ul RBC 5.07 3.83-5.06 10*6/ul H HGB 14.08 11.59-15.11 g/dL HCT 42.1 34.6-44.1 % MCV 83.0 80-98 fL MCH 27.8 26.6-33.5 pg MCHC 33.4 32.9-35.4 g/dL RDW 15.2 12.6-15.6 % RDW-SD 42.5 38.9-50.6 fL PLATELETS 277.6 169-368 10^3/uL MPV 8.66 7.45-10.84 fL LYMPHOCYTES % 45.65 18.51-48.9 % LYMPHOCYTES # 2.58 1.16-3.78 10^3/uL MONOCYTES % 7.38 4.27-12.81 % MONOCYTES # 0.42 0.28-0.83 10^3/uL EOSINOPHILS % 3.20 0.71-6.09 % EOSINOPHILS # 0.18 0.04-0.42 10^3/uL BASOPHILS % 0.24 0.05-0.47 % BASOPHILS # 0.01 0.00-0.03 10^3/uL NEUTROPHILS % 43.53 41.35-72.27 % NEUTROPHILS # 2.46 2.03-7.67 10^3/uL T3, FREE Reviewed date:06/30/2024 11:06:50 AM Interpretation: Performing Lab: Notes/Report: T3, FREE 5.90 2.3-4.2 pg/mL H TSH Reviewed date:07/01/2024 11:21:39 PM Interpretation: Performing Lab: Notes/Report: TSH 0.001 0.40-4.50 mIU/L L T4, FREE Reviewed date:06/30/2024 11:06:55 AM Interpretation: Performing Lab: Notes/Report: T4, FREE 1.36 0.8-1.8 ng/dL .COMPREHENSIVE METABOLIC BEAN EL (60097) CMP Reviewed date:09/26/2024 08:52:54 PM Interpretation: Performing Lab:[facility], [place] Aníbal Redd MD Notes/Report: FASTING:YES FASTING: YES GLUCOSE 94 65-99 mg/dL N Fasting reference interval UREA NITROGEN (BUN) 17 7-25 mg/dL N CREATININE 0.57 0.50-1.05 mg/dL N EGFR 102 > OR = 60 mL/min/1.73m2 N BUN/CREATININE RATIO SEE NOTE: 6-22 (calc) Not Reported: BUN and Creatinine are within reference range. SODIUM 139 135-146 mmol/L N POTASSIUM 4.0 3.5-5.3 mmol/L N CHLORIDE 105 98-110 mmol/L N CARBON DIOXIDE 25 20-32 mmol/L N CALCIUM 9.8 8.6-10.4 mg/dL N PROTEIN, TOTAL 7.2 6.1-8.1 g/dL N ALBUMIN 4.6 3.6-5.1 g/dL N GLOBULIN 2.6 1.9-3.7 g/dL (calc) N ALBUMIN/GLOBULIN RATIO 1.8 1.0-2.5 (calc) N BILIRUBIN, TOTAL 1.3 0.2-1.2 mg/dL H ALKALINE PHOSPHATASE 116 37-153 U/L N AST 16 10-35 U/L N ALT 16 6-29 U/L N .CBC (INCLUDES DIFF/PLT) (63 99) Reviewed date:09/26/2024 08:52:54 PM Interpretation: Performing Lab:[facility] [place] Aníbal Redd MD Notes/Report: FASTING:YES FASTING: YES WHITE BLOOD CELL COUNT 5.8 3.8-10.8 Thousand/uL N RED BLOOD CELL COUNT 5.17 3.80-5.10 Million/uL H HEMOGLOBIN 14.5 11.7-15.5 g/dL N HEMATOCRIT 44.4 35.0-45.0 % N MCV 85.9 80.0-100.0 fL N MCH 28.0 27.0-33.0 pg N MCHC 32.7 32.0-36.0 g/dL N value (in the range of 30 to 32 g/dL) is most likely condition. not clinically significant; however, it should be interpreted with caution in correlation with other red cell parameters and the patient's clinical For adults, a slight decrease in the calculated MCHC RDW 13.1 11.0-15.0 % N PLATELET COUNT 305 140-400 Thousand/uL N MPV 10.0 7.5-12.5 fL N ABSOLUTE NEUTROPHILS 1804 1235-4127 cells/uL N ABSOLUTE LYMPHOCYTES 3283 850-3900 cells/uL N ABSOLUTE MONOCYTES 516 200-950 cells/uL N ABSOLUTE EOSINOPHILS 157 15-500 cells/uL N ABSOLUTE BASOPHILS 41 0-200 cells/uL N NEUTROPHILS 31.1 N LYMPHOCYTES 56.6 N MONOCYTES 8.9 N EOSINOPHILS 2.7 N BASOPHILS 0.7 N T4, FREE (866) Reviewed date:09/26/2024 08:52:54 PM Interpretation: Performing Lab:[facility] [place] Aníbal Redd MD Notes/Report: FASTING:YES FASTING: YES T4, FREE 1.6 0.8-1.8 ng/dL N TSH (899) Reviewed date:09/26/2024 08:52:54 PM Interpretation: Performing Lab:[facility] [place] Aníbal Redd MD Notes/Report: FASTING:YES FASTING: YES TSH <0.01 0.40-4.50 mIU/L L T3, FREE (03416) Reviewed date:09/26/2024 08:52:54 PM Interpretation: Performing Lab:[facility] [place] Aníbal Redd MD Notes/Report: FASTING:YES FASTING: YES T3, FREE 7.1 2.3-4.2 pg/mL H .COMPREHENSIVE METABOLIC BEAN EL (66744) CMP Reviewed date:12/02/2024 08:12:03 AM Interpretation: Performing Lab:[facility] [place] Aníbal Redd MD Notes/Report: GLUCOSE 92 65-99 mg/dL N Fasting reference interval UREA NITROGEN (BUN) 14 7-25 mg/dL N CREATININE 0.49 0.50-1.05 mg/dL L EGFR 106 > OR = 60 mL/min/1.73m2 N BUN/CREATININE RATIO 29 6-22 (calc) H SODIUM 139 135-146 mmol/L N POTASSIUM 4.0 3.5-5.3 mmol/L N CHLORIDE 105 98-110 mmol/L N CARBON DIOXIDE 26 20-32 mmol/L N CALCIUM 9.3 8.6-10.4 mg/dL N PROTEIN, TOTAL 7.0 6.1-8.1 g/dL N ALBUMIN 4.3 3.6-5.1 g/dL N GLOBULIN 2.7 1.9-3.7 g/dL (calc) N ALBUMIN/GLOBULIN RATIO 1.6 1.0-2.5 (calc) N BILIRUBIN, TOTAL 0.8 0.2-1.2 mg/dL N ALKALINE PHOSPHATASE 109 37-153 U/L N AST 17 10-35 U/L N ALT 16 6-29 U/L N .CBC (INCLUDES DIFF/PLT) (63 99) Reviewed date:12/02/2024 08:12:09 AM Interpretation: Performing Lab:[facility] [place] Aníbal Redd MD Notes/Report: WHITE BLOOD CELL COUNT 6.5 3.8-10.8 Thousand/uL N RED BLOOD CELL COUNT 4.78 3.80-5.10 Million/uL N HEMOGLOBIN 13.8 11.7-15.5 g/dL N HEMATOCRIT 42.5 35.0-45.0 % N MCV 88.9 80.0-100.0 fL N MCH 28.9 27.0-33.0 pg N MCHC 32.5 32.0-36.0 g/dL N condition. interpreted with caution in correlation with other red cell parameters and the patient's clinical value (in the range of 30 to 32 g/dL) is most likely For adults, a slight decrease in the calculated MCHC not clinically significant; however, it should be RDW 13.3 11.0-15.0 % N PLATELET COUNT 292 140-400 Thousand/uL N MPV 9.8 7.5-12.5 fL N ABSOLUTE NEUTROPHILS 2171 0511-4955 cells/uL N ABSOLUTE LYMPHOCYTES 3523 850-3900 cells/uL N ABSOLUTE MONOCYTES 592 200-950 cells/uL N ABSOLUTE EOSINOPHILS 182 15-500 cells/uL N ABSOLUTE BASOPHILS 33 0-200 cells/uL N NEUTROPHILS 33.4 N LYMPHOCYTES 54.2 N MONOCYTES 9.1 N EOSINOPHILS 2.8 N BASOPHILS 0.5 N T4, FREE (866) Reviewed date:12/02/2024 08:12:35 AM Interpretation: Performing Lab:[facility], [place] Aníbal Redd MD Notes/Report: T4, FREE 0.9 0.8-1.8 ng/dL N TSH (899) Reviewed date:12/02/2024 08:12:56 AM Interpretation: Performing Lab:[facility] [place] Aníbal Redd MD Notes/Report: TSH 0.01 0.40-4.50 mIU/L L T3, FREE (47506) Reviewed date:12/08/2024 03:43:31 PM Interpretation: Performing Lab:[facility] [place] Aníbal Redd MD Notes/Report: T3, FREE 4.9 2.3-4.2 pg/mL H Reason For Referral No Information Medications Medication SIG (Take, Route, Frequency, Duration) Notes Start Date End Date Status methIMAzole 10 MG Tablet ; Duration: 30 Days Active ALPRAZolam 0.5 MG Tablet TAKE ONE TAB BY MOUTH 30MIN PRIOR TO FLIGHT FOR ANXIETY CONTROL.; Duration: 2 Days Active methIMAzole 5 MG Tablet 1 tab(s) orally once daily; Duration: 90 days 01/06/2024 Not-Taking methIMAzole 5 MG Tablet take up to 2 tab lets Orally twice daily; Duration: 90 days 06/28/2024 Active Social History Social History Additional Details Category Social Info Options Details Migrated Social History Migrated Social History (Alcohol:):yes Once a month (Recreational drug use:):yes occasional Marijuana usage (Smoking:):no Section Notes: Non-Contributory Problems Problem Type SNOMED Code ICD Code Onset Dates Problem Status W/U Status Risk Notes Problem Non-toxic goiter (991633051) Nontoxic goiter, unspecified (E04.9) Active confirmed Problem 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 Problem Autoimmune thyroiditis (84114861) Autoimmune thyroiditis (E06.3) Active confirmed Problem Vitamin D deficiency (03153237) Vitamin D deficiency, unspecified (E55.9) Active confirmed Problem Menopause (539233723) Menopausal and female climacteric states (N95.1) Active confirmed Problem Dyslipidemia (630317513) Dyslipidemia (E78.5) Active confirmed Vital Signs Heart Rate 84 /min 10/26/2024 Oximetry 96 % 10/26/2024 Blood pressure diastolic 73 mm Hg 10/26/2024 Weight-kg 66.23 kg 10/26/2024 Height 64 in 10/26/2024 Blood pressure systolic 127 mm Hg 10/26/2024 Weight 146 lbs 10/26/2024 BMI 25.06 kg/m2 10/26/2024 Encounters Encounter Location Date Provider Diagnosis [facility] [address] [place], [place] [id number] 03/06/2024 Provider Migration [facility] [address] [place] [address] 01/06/2024 Yari Bean Thyrotoxicosis with diffuse goiter without thyrotoxic crisis or storm E05.00 ; Autoimmune thyroiditis E06.3 ; Hyperlipidemia, unspecified E78.5 and Other fatigue R53.[address] Cartagena [address] [place] [phone] 03/02/2024 Carolyn Cartagena Thyrotoxicosis with diffuse goiter without thyrotoxic crisis or storm E05.00 ; Autoimmune thyroiditis E06.3 ; Menopausal and female climacteric states N95.1 and Vitamin D deficiency, unspecified E55.[address] Cartagena [address] [place] [phone] 06/28/2024 Carolyn Cartagena Autoimmune thyroidit is E06.3 ; Thyrotoxicosis with diffuse goiter without thyrotoxic crisis or storm E05.00 and Dyslipidemia E78.[address] Cartgaena [address] [place] [phone] 10/26/2024 Carolyn Cartagena Thyrotoxicosis with diffuse goiter without thyrotoxic crisis or storm E05.00 ; Autoimmune thyroiditis E06.3 and Dyslipidemia E78.[address] Cartagena [address] [place] [phone] 02/16/[address] Cartagena [address] [place] [phone] 03/01/2024 Carolyn Cartagena Assessments Encounter Date Diagnosis (ICD Code) Assessment Notes Treatment Notes Treatment Clinical Notes Section Notes 01/06/2024 Thyrotoxicosis with diffuse goiter without thyrotoxic crisis or storm (ICD-10 - E05.00) 01/06/2024 Autoimmune thyroiditis (ICD-10 - E06.3) 03/02/2024 Thyrotoxicosis with diffuse goiter without thyrotoxic crisis or storm (ICD-10 - E05.00) 03/02/2024 Autoimmune thyroiditis (ICD-10 - E06.3) 06/28/2024 Autoimmune thyroiditis (ICD-10 - E06.3) 10/26/2024 Thyrotoxicosis with diffuse goiter without thyrotoxic crisis or storm (ICD-10 - E05.00) 10/26/2024 Autoimmune thyroiditis (ICD-10 - E06.3) 03/02/2024 Menopausal and female climacteric states (ICD-10 - N95.1) 06/28/2024 Thyrotoxicosis with diffuse goiter without thyrotoxic crisis or storm (ICD-10 - E05.00) 01/06/2024 Hyperlipidemia, unspecified (ICD9-CM - E78.5) 03/02/2024 Vitamin D deficiency, unspecified (ICD-10 - E55.9) 01/06/2024 Other fatigue (ICD-10 - R53.83) 06/28/2024 Dyslipidemia (ICD-10 - E78.5) 10/26/2024 Dyslipidemia (ICD-10 - E78.5) 01/06/2024 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 - Lab results: TSH at 0.02, high TPO antibodies, normal TG antibodies, T3 at 4.8, and T4 within normal limits. - Currently managed with Methimazole 10 mg daily. Plan: Reduce Methimazole dosage to 5 mg daily alternating between 10mg one day and 5mg the following day recheck labs in six weeks, and schedule a telehealth visit if necessary. 2. Hyperlipidemia - Cholesterol levels: Total cholesterol at 202, LDL at 113, and Triglycerides at 176. - Noted family history of cardiovascular disease. Plan: Initiate omega-3 fatty acid supplementation, she is purchasing two of our CW omegas, recommend inclusion of walnuts and kem seeds in diet, and continue to monitor cholesterol levels. 3. Borderline Pre-diabetes - HbA1c level at 5.6. Plan: Continue monitoring HbA1c levels and encourage a healthy diet and exercise regimen. 4. Vitamin D Insufficiency - Vitamin D level at 38. -Continue to supplementing with 1000-2000mcg Plan: Proceed with monitoring vitamin D levels. 5. Vitamin B12 Supplementation Plan: Start oral Vitamin B12 supplementation at 500 mcg daily.-Pt purchased our orthomolecular B12 complex. 6. Weight Loss due to Digestive Issues - Reported a 10-pound weight loss, current weight is 145 lbs. Plan: Monitor weight closely and address any further concerns regarding weight loss. 7. Tachycardia - Heart rate recorded at 91 bpm. - Patient has a history of using Propranolol. Plan: Continue to monitor heart rate and adjust medication as necessary. quest: cbc, cmp, tsh, ft3, reverse t3, ft4, tsh, b12 Case discussed with Yari Bean NP and I agree with plan and recommendations- Carolyn Cartagena MD 03/02/2024 Other Assessment and Plan: 1. Thyroid disorder:- Continue 20 mg methimazole daily.- Recheck thyroid levels in a few weeks.- Comprehensive tests in the spring. 2. Vitamin supplementation:- Continue fish oil, vitamin B, calcium, and vitamin D.- Monitor for any adverse effects. 3. Bone density:- Order bone density scan.- Appointment scheduled for the this month at [facility]. 4. Gastrointestinal issues and weight loss:- Colonoscopy and endoscopy scheduled for March.- Monitor weight and maintain BMI within the ideal range (140-145 pounds). 5. Lipid levels:- Continue consuming kem seeds and walnuts for omega-3s.- Monitor lipid levels periodically. 6. Joint pain and possible rheumatoid arthritis:- Include rheumatoid arthritis testing in the upcoming blood test.- Monitor joint pain and swelling. 7. General health:- Provide a printout of the last three blood tests for the patient.- Encourage the patient to maintain a consistent healthcare provider for continuity of care. Spent 25 minutes preparing to see the patient (ex review of tests/chart), obtaining and / or reviewing separately obtained history, performing a medically appropriate examination and/or evaluation, counseling and educating the patient/family/careg iver, ordering medications, tests, or procedures, referring and communicating with other health campground caretaker, documenting clinical information in the electronic or other health record, independently interpreting results and communicating results to the patient/family/careg iver and care coordinating patient plan. Patient alert and oriented x 4 and aware of discussion noted above and in agreeance to plan in management of thyrotoxicosis, autoimmune thyroiditis, menopausal changes/bone density order and vit D def. 06/28/2024 Other Assessment and Plan: Hyperthyroidism ManagementPatient currently on methimazole 20 mg daily, reports feeling good without symptoms of being overblocked, weight gain, or fatigue. Weight and blood pressure are noted to be good.Adjust methimazole dosage: Prescribe 5 mg tablets for flexible dosing.Current dosage: Continue 20 mg daily until blood test results.Potential dose reduction to 15 mg daily to be considered.Order thyroid function tests (non-fasting).Follow -up: Review blood test results and adjust medication as needed.Schedule next appointment in 3-4 months (summer). Post-colonoscopy Bowel ChangesPatient reports choppy bowel movements and incomplete evacuation in the mornings since undergoing a colonoscopy in March. No polyps, ulcers, or other abnormalities found. EGD was normal.Experienced weight loss of about 25 pounds during this period but has since regained approximately 5 pounds.Consider magnesium supplementation for bowel regularity.Monitor weight and bowel symptoms.No immediate follow-up imaging or procedures indicated given recent normal EGD and colonoscopy. Spent 20 minutes preparing to see the patient (ex review of tests/chart), obtaining and / or reviewing separately obtained history, performing a medically appropriate examination and/or evaluation, counseling and educating the patient/family/careg iver, ordering medications, tests, or procedures, referring and communicating with other health campground caretaker, documenting clinical information in the electronic or other health record, independently interpreting results and communicating results to the patient/family/careg iver and care coordinating patient plan. Patient alert and oriented x 4 and aware of discussion noted above and in agreeance to plan in management of autoimmune thyroiditis/graves/t oxicosis, vit D def and dyslipidemia. 10/26/2024 Other Assessment and Plan: 1. Hyperthyroidism- Patient is currently on methimazole 20 mg daily for hyperthyroidism management- Recent thyroid function tests show T4 and T3 at upper normal limits (T4 reported as 1.6-1.8)- Patient experienced a period of dizziness and lightheadedness, which has resolved- These symptoms, combined with the slightly elevated thyroid function tests, suggest a possible mild thyroiditis episode- The patient's current status is subclinical based on bloodwork, with no overt signs of thyrotoxicosis- Stress from recent travel and a family emergency may have contributed to the transient symptoms- Continue methimazole 20 mg daily- Repeat thyroid function tests in 4-6 weeks- Monitor for symptoms of thyrotoxicosis, particularly heart racing- Follow-up visit in 6 months- Patient instructed to contact office if symptoms worsen before next appointment 2. Hypercholesterolemia - Recent lipid panel shows total cholesterol of 220 mg/dL, HDL 61 mg/dL, and LDL 136 mg/dL- The patient reports that their nurse practitioner mentioned cholesterol levels have improved- Current levels do not indicate a need for immediate intervention- Continue current management (no specific interventions mentioned)- Reassess lipid levels at next follow-up 3. Insomnia- Patient reports chronic difficulty sleeping- This could be related to thyroid dysfunction or other factors not discussed in this encounter- Continue to monitor sleep issues in relation to thyroid function Spent 25 minutes preparing to see the patient (ex review of tests/chart), obtaining and / or reviewing separately obtained history, performing a medically appropriate examination and/or evaluation, counseling and educating the patient/family/careg iver, ordering medications, tests, or procedures, referring and communicating with other health campground caretaker, documenting clinical information in the electronic or other health record, independently interpreting results and communicating results to the patient/family/careg iver and care coordinating patient plan. Patient alert and oriented x 4 and aware of discussion noted above and in agreeance to plan in management of hyperthyroidism/auto immune thyroiditis, insomnia and dyslipidemia/HDL in good range. Plan Of Treatment Pending Test Test Name Order Date Dexa Bone density 03/02/2024 Ultrasound thyroid 11/25/2023 Next Appt Details Provider Name:Carolyn Cartagena, 11:00:00 AM, [address] [place] [address], [phone], Insurance Providers Payer Name Payer Address Payer Phone Subscriber Number Group Number Insured Name Patient Relationship to Insured Coverage Start Date Coverage End Date Greg [facility] 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
--- OUTSIDE RECORDS SUMMARY | 2024-12-27 14:17 | XMS_ITS | Patient Health Record ---
Author Organization [facility] Address [address] [address] Care Team Providers Care Wood Cabinetmaker Name Role Phone Yari Bean Unavailable [phone] OsielCarolyn Unavailable [phone] Migration, Provider Unavailable Unavailable Allergies No Known Allergies Results Component Value Reference Range Notes COMPREHENSIVE METABOLIC PANE L Reviewed date:02/23/2024 07:23:54 PM Interpretation: Performing Lab:[facility], [place], [address] Aníbal Redd MD Notes/Report: FASTING:YES FASTING: YES T3, FREE Reviewed date:02/26/2024 09:49:34 PM Interpretation: Performing Lab:[facility] [address], [place], [address] Aníbal Redd MD Notes/Report: FASTING:YES FASTING: YES CBC (INCLUDES DIFF/PLT) Reviewed date:02/23/2024 07:23:33 PM Interpretation: Performing Lab:[facility] [address], [place], [address] Aníbal Redd MD Notes/Report: FASTING:YES FASTING: YES VITAMIN B12/FOLATE, SERUM PA GWENDOLYN Reviewed date:02/23/2024 07:23:06 PM Interpretation: Performing Lab:[facility], [address] [place], [address] Aníbal Redd MD Notes/Report: FASTING:YES FASTING: YES LIPID PANEL Reviewed date:02/23/2024 07:24:03 PM Interpretation: Performing Lab:[facility] [address], [place], [place], [address] Aníbal Redd MD Notes/Report: FASTING:YES FASTING: YES T4, FREE Reviewed date:02/23/2024 07:23:21 PM Interpretation: Performing Lab:[facility], [address], [place], [place], [address] Aníbal Redd MD Notes/Report: FASTING:YES FASTING: YES TSH Reviewed date:02/23/2024 07:23:12 PM Interpretation: Performing Lab:[facility], [address], [place], [place], [address] Aníbal Redd MD Notes/Report: FASTING:YES FASTING: YES T3 REVERSE, LC/MS/MS Reviewed date:02/23/2024 07:23:40 PM Interpretation: Performing Lab:[facility],, [address] [place], [address] Tali Flynn MD,PhD,HARLEY Notes/Report: FASTING:YES FASTING: YES COMPREHENSIVE METABOLIC PANE L Reviewed date:03/24/2024 09:46:27 PM Interpretation: Performing Lab:[facility], [address], [place], [place], [address] Aníbal Redd MD Notes/Report: FASTING:YES FASTING: YES CYCLIC CITRULLINATED PEPTIDE (CCP) AB (IGG) Reviewed date:03/24/2024 09:45:25 PM Interpretation: Performing Lab:[facility], [address], [place], [place], [address] Aníbal Redd MD Notes/Report: FASTING:YES FASTING: YES HAYLEE IFA SCREEN W/REFL TO TIT ER AND PATTERN, IFA Reviewed date:03/24/2024 09:45:34 PM Interpretation: Performing Lab:[facility], [address], [place], [place], [address] Aníbal Redd MD Notes/Report: FASTING:YES FASTING: YES T3, FREE Reviewed date:03/24/2024 09:47:13 PM Interpretation: Performing Lab:[facility], [address] [place], [address] Aníbal Redd MD Notes/Report: FASTING:YES FASTING: YES RHEUMATOID FACTOR Reviewed date:03/24/2024 09:46:37 PM Interpretation: Performing Lab:[facility], [address], [place], [address] Aníbal Redd MD Notes/Report: FASTING:YES FASTING: YES C-REACTIVE PROTEIN Reviewed date:03/24/2024 09:46:44 PM Interpretation: Performing Lab:[facility], [address] [place], [address] Aníbal Redd MD Notes/Report: FASTING:YES FASTING: YES CBC (INCLUDES DIFF/PLT) Reviewed date:03/24/2024 09:45:50 PM Interpretation: Performing Lab:[facility], [address], [place], [address] Aníbal Redd MD Notes/Report: FASTING:YES FASTING: YES SED RATE BY MODIFIED WESTERG MERCY Reviewed date:03/24/2024 09:46:04 PM Interpretation: Performing Lab:[facility], [address] [place], [address] Aníbal Redd MD Notes/Report: FASTING:YES FASTING: YES T4, FREE Reviewed date:03/30/2024 12:14:05 PM Interpretation: Performing Lab:[facility], [address], [place], [address] Aníbal Redd MD Notes/Report: FASTING:YES FASTING: YES TSH Reviewed date:03/24/2024 09:46:53 PM Interpretation: Performing Lab:[facility], [address], [place], [address] Aníbal Redd MD Notes/Report: FASTING:YES FASTING: YES Reason For Referral No Information Medications Medication SIG (Take, Route, Fr equency, Duration) Notes Start Date End Date Status methIMAzole 10 MG for 30 Days Active methIMAzole 5 MG 1 tab(s) orally once daily for 90 days 01/06/2024 Active ALPRAZolam 0.5 MG TAKE ONE TAB BY MOUT H 30MIN PRIOR TO FLIGHT FOR ANXIETY CONTROL. 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 [place]ardenas [address] [place] [address] 01/06/2024 Yari Bean Thyrotoxicosis with diffuse goiter without thyrotoxic crisis or storm E05.00 ; Autoimmune thyroiditis E06.3 ; Hyperlipidemia, unspecified E78.5 and Other fatigue R53.83 [employer] [facility] Carolynteo Cartagena [address] [place] [address] 03/02/2024 Carolyn Cartagena Thyrotoxicosis with diffuse goiter without thyrotoxic crisis or storm E05.00 ; Autoimmune thyroiditis E06.3 ; Menopausal and female climacteric states N95.1 and Vitamin D deficiency, unspecified E55.9 [facility] [employer] [facility] Carolynteo Cartagena [address] [place] [address] 06/28/2024 Carolyn Cartagena [facility] [address] [address] 03/06/2024 Provider Migration [facility] - Carolyn Cartagena [address] [place] [address] 02/16/2024 Carolyn Cartagena [facility] - Carolyn Osiel [address] [place] [address] 03/01/2024 Carolyn Cartagena Assessments Encounter Date Diagnosis (ICD Code) Assessment Notes Treatment Notes Treatment Clinical Notes Section Notes 01/06/2024 Thyrotoxicosis with diffuse goiter without thyrotoxic crisis or storm (ICD-10 - E05.00) 01/06/2024 Autoimmune thyroiditis (ICD-10 - E06.3) 03/02/2024 Thyrotoxicosis with diffuse goiter without thyrotoxic crisis or storm (ICD-10 - E05.00) 03/02/2024 Autoimmune thyroiditis (ICD-10 - E06.3) 01/06/2024 Hyperlipidemia, unspecified (ICD-10 - E78.5) 03/02/2024 Menopausal and female climacteric states (ICD-10 - N95.1) 01/06/2024 Other fatigue (ICD-10 - R53.83) 03/02/2024 Vitamin D deficiency, unspecified (ICD-10 - E55.9) 01/06/2024 Other 1. Trevor's Thyroiditis - Thyroid [...] bone density scan.- Appointment scheduled for the of this month at [facility]. 4. Gastrointestinal issues and weight loss:- [...] examination and/or evaluation, counseling and educating the patient/family/veterinarian laboratory animal care, ordering medications, tests, or procedures, referring and communicating with other health customer care representative, documenting clinical information in the electronic or other health record, independently interpreting results and communicating results to the patient/family/veterinarian laboratory animal care and care coordinating patient plan. Patient alert and oriented x 4 and aware of discussion noted above and in agreeance to plan in management of thyrotoxicosis, autoimmune thyroiditis, menopausal changes/bone density order and vit D def. Plan Of Treatment Pending Test Test Name Order Date Dexa Bone density 03/02/2024 Ultrasound thyroid 11/25/2023 Insurance Providers Payer Name Payer Address Payer Phone Subscriber Number Group Number Insured Name Patient Relationship to Insured Coverage Start Date Coverage End Date [facility] 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
== END 2024-12-27 14:13 | disposition home or self-care (01) ==
LOC: ANHFOHIMG 14:13
PROVIDERS: PCP Family Medicine; Visit Provider Family Medicine
DX: Z12.31 Encounter for screening mammogram for malignant neoplasm of breast (principal)
CPT/HCPCS: 77063; 77067